=== PATIENT | female | born 1955 | race African-American/Black ===

== ENCOUNTER 2016-06-19 17:25 | Emergency (ER) | payer MEDICAID, SELFPAY ==
[~2016-06-19] VITALS: Ht 170.2 cm; Wt 70.5 kg
[~2016-06-19 17:25] MED LIST: NOCURR
[2016-06-19] MEDS ORDERED: LIDOCAINE HCL/PF 1% 2 ML VIAL IM ONE (18:45)
[2016-06-19] MEDS ORDERED: CefTRIAXone SODIUM 1 GM/VIAL IM ONE (18:45)
[2016-06-19] MEDS ORDERED: ACETAMINOPHEN 325 MG TABLET PO ONE (18:45)
[2016-06-19 19:58] VITALS: BP 129/77
== END 2016-06-19 20:02 | disposition home or self-care (01) ==
LOC: EMS 17:26
DX: L03.115 Cellulitis of right lower limb (principal); L03.116 Cellulitis of left lower limb; L08.9 Local infection of the skin and subcutaneous tissue, unspecified; R60.0 Localized edema
CPT/HCPCS: 96372; 99284; J0696; J3490

== ENCOUNTER 2019-09-03 10:25 | Emergency (ER) | payer MEDICAID ==
[~2019-09-03] VITALS: Ht 170.2 cm; Wt 71.4 kg
[2019-09-03] MEDS ORDERED: FAMOTIDINE 20 MG TABLET PO ONE (11:45)
[2019-09-03] MEDS ORDERED: CETIRIZINE HCL 10 MG TABLET PO ONE (11:45)
[2019-09-03] MEDS ORDERED: TRIAMCINOLONE 0.025% 15 GM OINTMENT TP ONE (11:45)
[2019-09-03 12:03] VITALS: BP 140/85
== END 2019-09-03 12:22 | disposition home or self-care (01) ==
LOC: EMS 10:27
DX: L25.9 Unspecified contact dermatitis, unspecified cause (principal); F17.210 Nicotine dependence, cigarettes, uncomplicated; Z59.0 Homelessness; Z90.710 Acquired absence of both cervix and uterus
CPT/HCPCS: Z7502; Z7610

== ENCOUNTER 2019-09-06 11:31 | Emergency (ER) | payer MEDICAID ==
[~2019-09-06] VITALS: Ht 170.2 cm; Wt 68.2 kg
[2019-09-06 11:41] VITALS: BP 135/77
== END 2019-09-06 12:39 | disposition left against medical advice (07) ==
LOC: EMS 11:32
DX: I10 Essential (primary) hypertension (principal); Z53.21 Procedure and treatment not carried out due to patient leaving prior to being seen by health care provider